=== PATIENT | female | born 1950 | race Two or more races ===

== ENCOUNTER 2024-10-20 15:50 | Inpatient (IN) | payer OTHER, MEDICAID ==
[~2024-10-20] VITALS: Ht 154.9 cm; Wt 44.0 kg
--- NOTE | 2024-10-20 16:16 | ED.PDOC ---
GI ASSESSMENT HPI Comments This is a 74 year old female accompanied by daughter presents to the ED with chief complaint of abdominal pain. Patient reports that she has been experiencing generalized abdominal pain with associated nausea, vomiting, diarrhea, weakness, dizziness, body aches, and headaches for the past 3 days. Patient relays that she feels as if the room is spinning, making it unable for her to walk around. Patient's daughter states she took the patient to [facility] today and was advised to come to the ED due to her symptoms. Patient denies any fever, chills, hematemesis, dysuria, flank pain, or chest pain. Chief Complaint: Abdominal Pain Time Seen by MD: 16:13 Reviewed Notes: Nurses Notes, Medications, Allergies Allergies: Coded Allergies: NO KNOWN ALLERGIES (Unverified , 10/20/24) Information Source: Patient, Relative (Child) Mode of Arrival: Wheelchair Timing: Days Duration: Since onset Prehospital treatment: None Quality: Aching Vomitus: Watery Stool: Watery Severity: Moderate Recent: None Recent Hx of: None Pain Location: Diffuse Modifying Factors: Nothing Associated sign and symptoms: Nausea, Vomiting, Diarrhea, Abdominal Pain Past Medical History PAST MEDICAL HISTORY: Denies Surgical History: Denies all surgeries CORE SHAPER TOP History: No Pertinent CORE SHAPER TOP History Family History Family History: Reviewed,noncontributory to illness Social History Smoker: Non-Smoker Alcohol: Denies ETOH Use Drugs: Denies Drug Use Lives In: Home Constitutional: reports: weakness; denies: chills, diaphoresis, fatigue, fever, malaise, sweats, others EENTM: denies: blurred vision, double vision, ear bleeding, ear discharge, ear drainage, ear pain, ear ringing, eye pain, eye redness, hearing loss, mouth pain, mouth swelling, nasal discharge, nose bleeding, nose congestion, nose pain, photophobia, tearing, throat pain, throat swelling, voice changes, others Respiratory: denies: cough, hemoptysis, orthopnea, SOB at rest, shortness of breath, SOB with excertion, stridor, wheezing, others Cardiovascular: denies: chest pain, dizzy spells, diaphoresis, Dyspnea on exertion, edema, irregular heart beat, left arm pain, lightheadedness, palpitations, PND, syncope, others Gastrointestinal: reports: abdominal pain, diarrhea, nausea, vomiting; denies: abdomen distended, blood streaked bowels, constipated, dysphagia, difficulty swallowing, hematemesis, melena, poor appetite, poor fluid intake, rectal bleeding, rectal pain, others Genitourinary: denies: abnormal vagina bleeding, burning, dyspareunia, dysuria, flank pain, frequency, hematuria, incontinence, pain, , vagina discharge, urgency, others Neurological: reports: dizziness, headache; denies: fainting, left sided numbness, left sided weakness, numbness, paresthesia, pre-existing deficit, right sided numbness, right sided weakness, seizure, speech problems, tingling, tremors, weakness, others Musculoskeletal: denies: back pain, gout, joint pain, joint swelling, muscle pain, muscle stiffness, neck pain, others Integumetry: denies: bruises, change in color, change in hair/nails, dryness, laceration, lesions, lumps, rash, wounds, others Allergic/Immunocompromised: denies: Difficulty Healing, Frequent Infections, Hives, Itching, others Hematologic/Lymphatic: denies: anemia, blood clots, easy bleeding, easy bruising, swollen glands, others Endocrine: denies: excessive hunger, excessive sweating, excessive thirst, excessive urination, flushing, intolerance to cold, intolerance to heat, unexplained weight gain, unexplained weight loss, others Psychiatric: denies: anxiety, bipolar disorder, depression, hopeless, panic disorder, schizophrenia, sleepless, suicidal, others All Other Systems: Reviewed and Negative Physical Exam General Appearance: No Apparent Distress, Normal HEENT: Normal ENT Inspection, Pharynx Normal, TMs Normal Neck: Full Range of Motion, Non-Tender, Normal, Normal Inspection Respiratory: Chest Non-Tender, Lungs Clear, No Accessory Muscle Use, No Respiratory Distress, Normal Breath Sounds Cardiovascular: No Edema, No JVD, No Murmur, No Gallop, Normal Peripheral Pulses, Regular Rate/Rhythm Breast Exam: Deferred Gastrointestinal: No Organomegaly, No Pulsatile Mass, Normal Bowel Sounds, Soft, Tenderness (Mild diffuse abdominal tenderness) Genitalia: Deferred Pelvic: Deferred Rectal: Deferred Extremities: No calf tenderness, Normal capillary refill, Normal inspection, Normal range of motion, Non-tender, No pedal edema Musculoskeletal : Apperance: Normal Neurologic: Alert, 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 Was a procedure done?: No GI differential Dx Differential Diagnosis: Gastroenteritis, Hernia, Pancreatitis, Urinary Obstruction, UTI, Drug toxicity, Electrolyte Imbalance, Food Poisoning, Parasitic, Hypovolemia, Impaction, Malnutrition, Renal Failure, Ischemic Bowel X-Ray, Labs, Meds, VS Vital Signs Date Time Temp Pulse Resp B/P (MAP) Pulse Ox O2 Delivery O2 Flow Rate FiO2 10/20/24 16:45 77 14 147/71 (96) 94 10/20/24 16:01 76 10/20/24 15:51 97.8 78 18 147/69 97.8 Lab Test 10/20/24 16:35 Range/Units White Blood Count 5.0 4.4-10.8 10^3/uL Red Blood Count 4.45 4.0-5.20 10^6/uL Hemoglobin 14.6 12.2-16.2 g/dL Hematocrit 41.3 36.0-46.0 % Mean Corpuscular Volume 92.9 80.0-100.0 fL Mean Corpuscular Hemoglobin 32.8 H 28.0-32.0 pg Mean Corpuscular Hemoglobin Concent 35.3 32.0-36.0 g/dL Red Cell Distribution Width 13.0 11.8-14.3 % Platelet Count 236 140-450 10^3/uL Mean Platelet Volume 8.5 6.9-10.8 fL Neutrophils (%) (Auto) 72.3 37.0-80.0 % Lymphocytes (%) (Auto) 22.7 10.0-50.0 % Monocytes (%) (Auto) 4.7 0.0-12.0 % Eosinophils (%) (Auto) 0.0 0.0-7.0 % Basophils (%) (Auto) 0.3 0.0-2.0 % Neutrophils # (Auto) 3.6 1.6-8.6 10 ^3/uL Lymphocytes # (Auto) 1.1 0.4-5.4 10 ^3/uL Monocytes # (Auto) 0.2 0-1.3 10 ^3/uL Eosinophils # (Auto) 0 0-0.8 10 ^3/uL Basophils # (Auto) 0 0-0.2 10 ^3/uL Nucleated Red Blood Cells 0.0 % Sodium Level Pending Potassium Level Pending Chloride Level Pending Carbon Dioxide Level Pending Anion Gap Pending Blood Urea Nitrogen Pending Creatinine Pending Glomerular Filtration Rate Calc Pending BUN/Creatinine Ratio Pending Serum Glucose Pending Lactic Acid Level Pending Calcium Level Pending Total Bilirubin Pending Aspartate Amino Transferase (AST) Pending Alanine Aminotransferase (ALT) Pending Alkaline Phosphatase Pending Total Protein Pending Albumin Pending X-Ray, Labs, Meds, VS Comment This 74-year-old female presents secondary to four day history of nausea, vomiting and diarrhea. The patient considered recurrent falls secondary to weakness. She states she is hungry but is unable to keep anything down. The significance is liquids. Patient was seen at [facility] early today who referred her to our facility. Here, the patient is noted to have multiple electrolyte abnormalities repeating renal azotemia hypokalemia. Disuse, she has lactic acidosis. However she does not have leukocytosis or tachycardia. Secondary to multiple complaints, the patient will be admitted for which light and correction rehydration and further workup of her syncope Time of 1ST Reevaluation: 17:12 Reevaluation 1ST: Unchanged Patient Education/Counseling: Diagnosis, Treatment Family Education/Counseling: Diagnosis, Treatment SEPSIS Sepsis Screen Date sepsis recognized/suspect: Oct 20, 2024 Time Sepsis recognized/suspect: 1551 Recent Procedure: No On Antibiotic Therapy: No Respiratory Rate >20: No Heart Rate >90: No Temp<36 C (96.8 F) or >38.3 C: No SBP <90 or MAP <65 mmHG: No New Acute Mental Status Change: No Is the patient on CPAP, BIPAP,: No Physician Orders Comprehensive Metabolic Panel (10/20/24 16:15) Urinalysis (10/20/24 16:15) Lactic Acid W/ Reflex Order (10/20/24 16:15) Head Without Contrast (10/20/24 16:15) Electrocardigram (10/20/24 16:33) Vital Signs Date Time Temp Pulse Resp B/P (MAP) Pulse Ox O2 Delivery O2 Flow Rate FiO2 10/20/24 16:45 77 14 147/71 (96) 94 10/20/24 16:01 76 10/20/24 15:51 97.8 78 18 147/69 97.8 Laboratory Tests Test 10/20/24 16:35 Lactic Acid Level Pending White Blood Count 5.0 10^3/uL (4.4-10.8) Departure 1 Departure Time of Disposition: 17:26 Impression: Primary Impression: Dehydration Additional Impressions: Hypokalemia Headache Prerenal azotemia Lactic acidosis Transaminitis Syncope and collapse Disposition: ADMITTED INPATIENT Admit to: Tele Condition: Serious Critical Care Note Critical Care Time?: No Stability Stability form required: No Heart Score Heart Score: Heart Score Response (Comments) Value History N/A 0 EKG N/A 0 Age N/A 0 Risk Factors N/A 0 Troponin N/A 0 Total 0 I personally scribed for GILBERTO BARRAZA MD ([email or web address]) on 10/20/24 at 16:16. Electronically submitted by Sean Barrios ([email or web address]). GILBERTO BARRAZA MD Oct 20, 2024 16:16
[2024-10-20 16:45] VITALS: PULSE 15; RESP 14; O2SAT 94
[2024-10-20 16:58] LABS: Hematocrit 41.3 % (36.0-46.0); Hemoglobin 14.6 g/dL (12.2-16.2); Mean Corpuscular Hemoglobin 32.8 pg (28.0-32.0); Mean Corpuscular Volume 92.9 fL (80.0-100.0); Nucleated Red Blood Cells % 0.0 %
--- NOTE | 2024-10-20 17:04 | DVH ---
EXAM DESCRIPTION: CT HEAD WITHOUT CONTRAST CLINICAL HISTORY: headaach, n/v COMPARISON: None TECHNIQUE: Noncontrast CT head was performed. Coronal MPR images were generated. CTDI/ DLP = 51.55 / 51.55. Dose reduction technique with one or more of the following methods was performed: Automated exposure control, adjustment of the mA and/or kV according to patient size, use of iterative reconstruction [place]. FINDINGS: No evidence of acute intracranial hemorrhage. No mass effect. No extra-axial collections of fluid or blood. The brain is normal in attenuation. The ventricles and sulci are normal in size for age. Clear basal cisterns. The calvarium is intact. The soft tissues are unremarkable. The paranasal sinuses and mastoid air cells are clear. IMPRESSION: 1. No acute intracranial findings.
[2024-10-20 17:18] LABS: Alkaline Phosphatase 51 U/L (46-116); Anion Gap 12 (5-15); BUN/Creatinine Ratio 23.3 (10.0-20.0); Bilirubin, Total 0.6 mg/dL (0.2-1.0); Blood Urea Nitrogen 14 mg/dL (9-23); Calcium 9.8 mg/dL (8.7-10.4); Carbon Dioxide 30 mmol/L (20-31); Chloride 104 mmol/L (98-107); Total Protein 7.4 g/dL (5.7-8.2)
[2024-10-20 17:19] LABS: Alanine Aminotransferase 57 U/L (7-40); Albumin 4.9 g/dL (3.2-4.8); Glucose 120 mg/dL (74-106); Potassium 3.0 mmol/L (3.5-5.1); Sodium 146 mmol/L (136-145)
[2024-10-20 17:20] LABS: Lactic Acid w/Reflex 2.2 mmol/L (0.4-2.0)
[2024-10-20] MEDS: SODIUM CHLORIDE 0.9% 1,000 ML IV ONE (17:44)
[2024-10-20] MEDS: ONDANSETRON HCL 4 MG/2 ML VIAL IV ONE (17:48)
[2024-10-20] MEDS: METOCLOPRAMIDE HCL 5MG/ml INJ 2ml VIAL IV ONE (17:48)
--- NOTE | 2024-10-20 18:19 | DVHHP2 ---
Admitting Diagnosis: Abdominal pain History of Present Illness This is a 74 year old female accompanied by daughter presents to the ED with chief complaint of abdominal pain. Patient reports that she has been expe riencing generalized abdominal pain with associated nausea, vomiting, diarrhea, weakness, dizziness, body aches, and headaches for the past 3 days. Patient relays that she feels as if the room is spinning, making it unable for her to walk around. Patient's daughter states she took the patient to [facility] today and was advised to come to the ED due to her symptoms. Patient denies any fever, chills, hematemesis, dysuria, flank pain, or chest pain. Chief Complaint: Abdominal Pain PAST MEDICAL HISTORY: Denies Surgical History: Denies all surgeries HAND STRIPPER History: No Pertinent HAND STRIPPER History Family History Family History: Reviewed,noncontributory to illness Social History Smoker: Non-Smoker Alcohol: Denies ETOH Use Drugs: Denies Drug Use Lives In: Home Allergies: Coded Allergies: NO KNOWN ALLERGIES (Unverified , 10/20/24) Current Medications Current Medications Medications (Trade) Dose Ordered Sig/Efrain Route PRN Reason Start Time Stop Time Status Last Admin Potassium Chloride 100 ml @ 50 mls/hr Q2H IV 10/20/24 17:30 10/20/24 21:29 10/20/24 18:50 Pantoprazole Sodium (Protonix) 40 mg DAILY IV 10/21/24 10:00 Vital Signs Vital Signs Date Time Temp Pulse Resp B/P (MAP) Pulse Ox O2 Delivery O2 Flow Rate FiO2 10/20/24 19:03 98 16 134/73 (93) 95 10/20/24 16:45 Room Air* 0 21 10/20/24 15:51 97.8 97.8 Physical Exam Generally 74 years old woman, well nourished well developed. No apparent distress HEENT-atraumatic, normocephalic Heart-regular rate and rhythm Clear to auscultate bilaterally Abdomen soft, mild tender epigastrium, nondistended Musculoskeletal-no edema cyanosis Neuro-AO x3, no focal deficits SEPSIS Sepsis Screen Date sepsis recognized/suspect: Oct 20, 2024 Time Sepsis recognized/suspect: 1552 Recent Procedure: No On Antibiotic Therapy: No Respiratory Rate >20: No Heart Rate >90: No Temp<36 C (96.8 F) or >38.3 C: No SBP <90 or MAP <65 mmHG: No New Acute Mental Status Change: No Is the patient on CPAP, BIPAP,: No Physician Orders Urinalysis (10/20/24 16:15) Head Without Contrast (10/20/24 16:15) Electrocardigram (10/20/24 16:33) Potassium Chl 20meq/100ml (10/20/24 17:30) Ct Ab Pel Wo Con-No Oral Or Iv (10/20/24 18:17) Pantoprazole (Protonix) (10/21/24 10:00) Clear Liq Diet (10/20/24 Dinner) Sodium Chloride 0.9% (10/20/24 18:30) Lactic Acid W/ Reflex Order (10/20/24 22:00) Lactic Acid W/ Reflex Order (10/21/24 02:00) Vital Signs Date Time Temp Pulse Resp B/P (MAP) Pulse Ox O2 Delivery O2 Flow Rate FiO2 10/20/24 19:03 98 16 134/73 (93) 95 10/20/24 17:11 74 10/20/24 16:45 77 14 147/71 (96) 94 10/20/24 16:45 15 14 94 Room Air* 0 21 10/20/24 16:01 76 10/20/24 15:51 97.8 78 18 147/69 97.8 Laboratory Tests Test 10/20/24 16:35 10/20/24 18:41 Lactic Acid Level 2.2 mmol/L (0.4-2.0) *H Pending White Blood Count 5.0 10^3/uL (4.4-10.8) Medications Medications Dose Ordered Sig/Efrain Route Start Time Stop Time Status Last Admin Dose Admin Metoclopramide HCl 10 mg ONCE ONCE IV 10/20/24 16:15 10/20/24 16:18 DC 10/20/24 17:48 Ondansetron HCl 4 mg ONCE ONCE IV 10/20/24 16:15 10/20/24 16:18 DC 10/20/24 17:48 Potassium Chloride 100 ml @ 50 mls/hr Q2H IV 10/20/24 17:30 10/20/24 21:29 10/20/24 18:50 Sodium Chloride 1,000 ml @ 1,000 mls/hr Q1H ONCE IV 10/20/24 16:15 10/20/24 17:14 DC 10/20/24 17:44 Sodium Chloride 1,450 ml @ 1,450 mls/hr ONCE ONCE IV 10/20/24 17:30 10/20/24 18:29 DC 10/20/24 18:50 Results Labs Test 10/20/24 18:41 10/20/24 16:35 Range/Units White Blood Count 5.0 4.4-10.8 10^3/uL Red Blood Count 4.45 4.0-5.20 10^6/uL Hemoglobin 14.6 12.2-16.2 g/dL Hematocrit 41.3 36.0-46.0 % Mean Corpuscular Volume 92.9 80.0-100.0 fL Mean Corpuscular Hemoglobin 32.8 H 28.0-32.0 pg Mean Corpuscular Hemoglobin Concent 35.3 32.0-36.0 g/dL Red Cell Distribution Width 13.0 11.8-14.3 % Platelet Count 236 140-450 10^3/uL Mean Platelet Volume 8.5 6.9-10.8 fL Neutrophils (%) (Auto) 72.3 37.0-80.0 % Lymphocytes (%) (Auto) 22.7 10.0-50.0 % Monocytes (%) (Auto) 4.7 0.0-12.0 % Eosinophils (%) (Auto) 0.0 0.0-7.0 % Basophils (%) (Auto) 0.3 0.0-2.0 % Neutrophils # (Auto) 3.6 1.6-8.6 10 ^3/uL Lymphocytes # (Auto) 1.1 0.4-5.4 10 ^3/uL Monocytes # (Auto) 0.2 0-1.3 10 ^3/uL Eosinophils # (Auto) 0 0-0.8 10 ^3/uL Basophils # (Auto) 0 0-0.2 10 ^3/uL Nucleated Red Blood Cells 0.0 % Sodium Level 146 H 136-145 mmol/L Potassium Level 3.0 L 3.5-5.1 mmol/L Chloride Level 104 98-107 mmol/L Carbon Dioxide Level 30 20-31 mmol/L Anion Gap 12 5-15 Blood Urea Nitrogen 14 9-23 mg/dL Creatinine 0.60 0.550-1.02 mg/dL Glomerular Filtration Rate Calc 94 >90 mL/min BUN/Creatinine Ratio 23.3 H 10.0-20.0 Serum Glucose 120 H 74-106 mg/dL Calcium Level 9.8 8.7-10.4 mg/dL Total Bilirubin 0.6 0.2-1.0 mg/dL Aspartate Amino Transferase (AST) 59 H 13-40 U/L Alanine Aminotransferase (ALT) 57 H 7-40 U/L Alkaline Phosphatase 51 46-116 U/L Total Protein 7.4 5.7-8.2 g/dL Albumin 4.9 H 3.2-4.8 g/dL Primary Diagnosis Abdominal pain Persistent diarrhea Plan For past three days patient was having diarrhea every time she has four five 6 times a day IV fluids for hydration Clear liquid diet advance as tolerated CT abdomen and pelvis to assess for infection Check stool culture Denied recent antibiotics. Antiemetic If negative for infection start loperamide Full code Lovenox for DVT prophylaxis PPI for GI prophylaxis Plan discussed with: Patient Date of Service: Oct 20, 2024 Billing Provider: ANJELICA HUNTLEY MD Common Visit Codes: 39010-ACQRTAM INP/OBS CARE (MOD) ANJELICA HUNTLEY MD Oct 20, 2024 18:19
[2024-10-20] MEDS ORDERED: SODIUM CHLORIDE 0.9% 1,000 ML IV ONE (18:30)
[2024-10-20] MEDS: POTASSIUM CHL 20MEQ/100ML 100 ML IV SCH (18:50)
[2024-10-20] MEDS: SODIUM CHLORIDE 0.9% 1,450 ML IV ONE (18:50)
--- NOTE | 2024-10-20 19:16 | DVH ---
COMPUTERIZED TOMOGRAPHY ABDOMEN AND PELVIS WITHOUT CONTRAST REASON FOR EXAM: assess for intra-abdominal infection. Abdominal pain. COMPARISON: None TECHNIQUE: Spiral scans were acquired from the diaphragm to the symphysis pubis without intravenous c ontrast administration. 2-D coronal and sagittal reformatted images were provided. Radiation optimiza tion: All CT scans at this facility use at least one of these dose optimization techniques: Automated exposure control mA and/or kV adjustment per patient size (includes targeted exams where dose is mat ched to clinical indication) or iterative reconstruction. RADIATION DOSE: CTDI: 5.66 mGy DLP: 271.97 mGy-cm FINDINGS: Respiratory motion degrades evaluation of the lung bases. There is a 4 mm calcified granuloma in the visualized right middle lobe. There is no pleural effusion. There is no pericardial effusion. The spleen is not enlarged. The liver is enlarged at 17.5 cm in length. The liver is diffusely hypoa ttenuating. No calcified gallstone is identified. Evaluation of the abdominal organs is suboptimal i n the absence of intravenous contrast. Unenhanced appearance of the pancreas is unremarkable. The ad renal glands are normal. The kidneys are similar in size. There is no hydronephrosis of either kidn ey. No renal, ureteral, or bladder calculus is identified. Severe streak artifact from right hip pros thesis degrades evaluation of the pelvic organs. There is no abdominal aortic aneurysm. There is mod erate atherosclerosis. No pathologic lymphadenopathy is identified by size criteria. There is no dist ention of the small bowel to suggest obstruction. There is extensive sigmoid diverticulosis without e vidence of diverticulitis. The colonic stool burden is small. The appendix contains a 6 mm appendico lith in the midportion of the appendix. The more distal appendix is mildly dilated with some air and fluid at 7 mm. There is no periappendiceal inflammatory change to suggest acute appendicitis. The angela endix is retrocecal. The uterus and ovaries are not well seen due to severe streak artifact from righ t hip prosthesis. No acute osseous abnormality is identified. IMPRESSION: Hepatomegaly. The liver is diffusely hypoattenuating which may be secondary to steatosis or another d iffuse hepatic process. Correlate clinically and with liver function tests. There is a 6 mm appendicoliths in the midportion of the appendix. The more distal appendix is mildly dilated with some air and fluid at 7 mm. There is no periappendiceal stranding to suggest acute angela endicitis, however, early appendicitis is not ruled out. Correlate clinically and with physical exam.
[2024-10-20] MEDS ORDERED: ACETAMINOPHEN 325 MG TAB PO PRN (19:30)
[2024-10-20] MEDS ORDERED: DOCUSATE SOD 100 MG CAP PO PRN (19:30)
[2024-10-20] MEDS ORDERED: ONDANSETRON HCL 4 MG/2 ML VIAL IV PRN (19:30)
[2024-10-20] MEDS ORDERED: HYDROcodone-ACET 5/325MG TAB PO PRN (19:30)
[2024-10-20 21:02] VITALS: PULSE 88; RESP 20; O2SAT 98
[2024-10-20] MEDS ORDERED: SODIUM CHLOR 0.9% PF (SALINE LOCK) 10ML VIAL/SYR IV SCH (22:00)
[2024-10-20 22:45] VITALS: BP 136/77; PULSE 73; RESP 20; TEMP 98.1; O2SAT 96
[2024-10-20 22:51] LABS: Lactic Acid w/Reflex 3.9 mmol/L (0.4-2.0)
[2024-10-21] MEDS ORDERED: cefTRIAXone 1GM/50ML D5W 50 ML IV SCH (09:00)
[2024-10-21] MEDS ORDERED: PANTOPRAZOLE 40 MG/10 ML VIAL INJ IV SCH (10:00)
[2024-10-21] MEDS ORDERED: ENOXAPARIN SOD 40 MG/0.4 ML SYRINGE SC SCH (10:00)
--- NOTE | 2024-10-23 10:55 | ECG ---
[facility] Test Date: 2024-10-20 Test Time: 16:01:15 Pat Name: MANNY MEDINA Department: ER Room: [address] [place] [address] A Gender: F [employer]: [employer] : 1950 Requested By: GILBERTO BARRAZA Order Number: [id number] Reading MD: Carmelo Churchill Measurements Intervals [place] Rate: 76 P: 74 MS: 151 QRS: 39 QRSD: 79 T: 57 QT: 478 QTc: 538 Interpretive Statements Sinus rhythm Borderline T wave abnormalities Prolonged QT interval Electronically Signed On 10-23-2024 22:58:01 PDT by Carmelo Churchill Please click the below link to view image of tracing.
== END 2024-10-20 23:04 | disposition short-term general hospital (02) | DRG 372 ==
LOC: ER 15:50 → OVERFLOW 19:20
PROVIDERS: ADMIT Internal Medicine; ATTEND Internal Medicine
DX: A04.9 Bacterial intestinal infection, unspecified (principal); E87.20 Acidosis, unspecified; E86.0 Dehydration; E87.6 Hypokalemia; R74.01 Elevation of levels of liver transaminase levels; R79.89 Other specified abnormal findings of blood chemistry; K76.0 Fatty (change of) liver, not elsewhere classified
CPT/HCPCS: 36415; 70450; 74176; 80053; 83605; 85025; 93005; 96361; 96374; G0378; J2405; J3480